=== PATIENT | female | born 1990 | race Caucasian/White ===

== ENCOUNTER 2017-09-14 14:30 | Emergency (ER) | payer BC ==
[~2017-09-14] VITALS: Ht 170.2 cm; Wt 62.6 kg
[2017-09-14 14:37] VITALS: BP 120/90
== END 2017-09-14 14:56 | disposition home or self-care (01) ==
LOC: ER 14:38
DX: J06.9 Acute upper respiratory infection, unspecified (principal)
CPT/HCPCS: 99283; A4606; Z7610

== ENCOUNTER 2019-01-03 18:45 | Emergency (ER) | payer SELFPAY ==
[~2019-01-03] VITALS: Ht 167.6 cm; Wt 63.5 kg
[2019-01-03 18:52] VITALS: BP 113/67
== END 2019-01-03 20:34 | disposition home or self-care (01) ==
LOC: ER 18:55
DX: S59.801A Other specified injuries of right elbow, initial encounter (principal); W18.39XA Other fall on same level, initial encounter; Y93.43 Activity, gymnastics; Y92.39 Other specified sports and athletic area as the place of occurrence of the external cause; Y99.8 Other external cause status
CPT/HCPCS: 73080; 99283; A4606

== ENCOUNTER → 2019-06-19 | Emergency (ER) | payer SELFPAY ==
[~2019-06-19] VITALS: Ht 170.2 cm; Wt 63.5 kg
[2019-06-19 22:41] VITALS: BP 101/68
== END | disposition home or self-care (01) ==
LOC: ER 22:36
DX: S62.313A Displaced fracture of base of third metacarpal bone, left hand, initial encounter for closed fracture (principal); S62.395A Other fracture of fourth metacarpal bone, left hand, initial encounter for closed fracture; W19.XXXA Unspecified fall, initial encounter; Y93.89 Activity, other specified; Y92.89 Other specified places as the place of occurrence of the external cause; Y99.8 Other external cause status
CPT/HCPCS: 73130-TC